=== PATIENT | female | born 1965 | race Caucasian/White ===

== ENCOUNTER → 2017-07-20 13:49 | Outpatient (CLI) | payer BC, SELFPAY ==
--- NOTE | 2017-07-20 13:57 | BI_ITS ---
MAMMOGRAPHY - BILATERAL DIAGNOSTIC REASON FOR EXAM: Female, 51 years old. Palpable abnormality upper outer quadrant of the left breast. PERTINENT HISTORY: Non-contributory. TECHNIQUE: Digital bilateral breast anant (3D mammographic acquisition) in the CC and MLO projections. 2-D mediolateral oblique (MLO) and craniocaudad (CC) views of both breasts were obtained. CAD: Full Field Digital Mammography with Computer Added Detection was performed. COMPARISON: No comparison mammograms available at this time. If any prior films become available, an addendum to this report can be generated. FINDINGS: Breast Composition: The breasts are heterogeneously dense, which may obscure small masses. There is evidence of a 2.7 cm x 1.4 cm spiculated mass in the upper lateral aspect of the left breast corresponding to the palpable abnormality. Calcifications are seen within it. Correlation with ultrasound is recommended. No other significant abnormalities are identified. BI/DIAG MAMM W/CAD, BILAT IMPRESSION: The palpable abnormality corresponds to 2.7 cm x 1.4 Adithya speculated mass in the upper outer quadrant of the left breast as described. Microcalcifications seen within it. A biopsy is recommended. Correlation with ultrasound is recommended as well. ASSESSMENT CATEGORY: BIRADS Category 4: Suspicious - Biopsy Should Be Considered. A letter regarding these results will be sent to the patient by the facility within 30 days. Approximately 10% of breast cancers are not detected by mammography. A normal mammogram should not delay biopsy of a clinically suspicious abnormality. Electronically Signed: Niels Jain MD at 15:36 EDT Tel [phone], Service support ,
--- NOTE | 2017-07-20 13:58 | US_ITS ---
STUDY: ULTRASOUND BREAST - LEFT REASON FOR EXAM: Female, 51 years old. One-month history of left breast lump. TECHNIQUE: Axial and longitudinal images of the LEFT breast were performed with a high resolution ultrasound transducer. COMPARISON: Comparison is made with prior mammogram done earlier today. FINDINGS: LEFT Breast: There is a 2.2 cm x 1.5 cm x 1.1 cm irregular hypoechoic mass with ill-defined borders. Calcifications are seen within it. This is seen at the 2:00 position breast at 6 and some in the a biopsy is recommended. US/Breast Limited Unilateral IMPRESSION: Suspicious abnormality at the 2:00 position of the breast at 6 cm from the nipple. A biopsy is recommended. ASSESSMENT CATEGORY: BIRADS Category 5: Highly Suggestive of Malignancy - Appropriate Action Should Be Taken. A letter regarding these results will be sent to the patient by the facility within 30 days. Electronically Signed: Niels Jain MD at 15:33 EDT Tel [phone], Service support ,
== END ==
PROVIDERS: Visit Provider Obstetrics & Gynecology
DX: N63.21 Unspecified lump in the left breast, upper outer quadrant (principal)
CPT/HCPCS: 76642; 77062; 77066; G0279

== ENCOUNTER → 2017-07-30 17:42 | Outpatient (CLI) | payer BC, SELFPAY ==
--- NOTE | 2017-07-30 | IMM_PTH ---
PATIENT: JUNIE KIM LOC: [facility] U#:[id number] AGE/SX: 59/F ROOM: RE07/30/[address]: Dr. Anurag Juárez MD : 1965 BED: DIS: SPEC #: [id number] RECD: 08/01/17 12:06 STATUS: CRUZ KAMILA #: [id number] REUBEN: 07/30/17 00:[address]: Anurag Juárez DEPT: IMMUNOHISTOCHEMISTRY RECD BY: Cris Flowers Tissues: Left breast, NOS Procedures: CALPONIN-1 (add) CK5-6 (add) CK8 (add) E-CAD (add) HER2 SAUL (add) KI-67 (add) P53 (add) HI (add) P40 (add) ER (initial) PHYSICIAN & INSTITUTION [place] [address] SPECIMEN INFORMATION: Tissue Source: Left breast core biopsy Clinical Info: Left breast abnormal ultrasound Specimen Number: [id number] CPT code: 58211, 10528 x6, 28427 x3 METHODOLOGY: Deparaffinized sections of prefer/formalin-fixed tissue or PAP/DQ stained slides are incubated with monoclonal/polyclonal antibodies/oligonucleotide probes. Localization is made via biotin free immunoperoxidase method. Appropriate controls are performed and reacted as expected. Results on target cell population are indicated in the following table: RESULTS: ANTIBODY / CLONE RESULT P53 (DO-7) negative Ki-67 (30-9) positive, low CK8 (68yxxeM19) positive CK5-6 (D5 & 1684) negative Calponin-1 (XQ143P) negative P40 (BC28) negative E-Cad (ECH-6) positive MORPHOMETRIC ANALYSIS ER (clone 6F11) >95%, strong HI (clone 16/1E2) 65%, moderate Her-2Neu (clone CB11) 0-1+ The prognostic test for HER2 is performed on formalin-fixed paraffin embedded tissue. A 3+ (positive) staining pattern is defined as intense, homogeneous, complete, circumferential membranous staining in >10% of contiguous tumor cells. A similar weak (2+) staining pattern is interpreted as equivocal. DELFINA follow-up testing is recommended for all equivocal cases. Positivity/negativity for ER/HI is reported if > or < 1% of the tumor cells are immuno- reactive, respectively. The ASCO/CAP criteria is used for scoring. Reference: Journal of Clinical Oncology, 2013; 31:9890-3626 & 2010; 16:6460-1924. Duration of fixation: 28.5 Hrs; Sample Adequate: Yes. These assays have not been validated on decalcified tissues. Results should be interpreted with caution given the likelihood of false negativity on decalcified specimens. These tests were developed and their performance characteristics determined by [facility]. They may not have been cleared or approved by the U.S. Food and Drug Administration. The FDA has determined that such clearance or approval is not necessary. 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 Positive for estrogen receptors (favorable prognostic indicator). Positive for progesterone receptors (favorable prognostic indicator). Negative for overexpression of DLS9iym. AM:marsha 08/02/17
--- NOTE | 2017-07-30 14:45 | BRBX_PTH ---
PATIENT: JUNIE KIM LOC: [facility] U#:[id number] AGE/SX: 59/F ROOM: RE07/30/[address]: Dr. Anurag Juárez MD : 1965 BED: DIS: SPEC #: [id number] RECD: 07/30/17 16:10 STATUS: HOPEJose KAMILA #: [id number] REUBEN: 07/30/17 14:[address]: Anurag Juárez DEPT: SURGICAL PATHOLOGY RECD BY: Isak Mcclain Tissues: Left breast, NOS Procedures: Surgery Specimen Level IV HEADER OPERATION: Left breast core biopsy PRE-OP DIAGNOSIS: Left breast abnormal ultrasound TISSUE SUBMITTED: Left breast tissue ISCHEMIC TIME: 1 minute FIXATION TIME: 28.5 hours MICROSCOPIC DIAGNOSIS Left breast, ultrasound-guided core biopsy: Invasive ductal carcinoma: Maximal length ? 10 mm Nuclear grade ? 3/3 Other findings ? 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 AM:marsha 08/01/17 COMMENT ER/MT/Qvz9ktv studies are being performed on sections of tumor and the results from this study will be reported separately ([id number]). MICROSCOPIC DESCRIPTION Slides are reviewed. GROSS DESCRIPTION Received in fixative is one container labeled with the patient's name and designated left breast. The specimen consists of two cores of light melton-white soft tissue. Each core has an average length of 1.2 cm and a maximal diameter of 0.1 cm. The specimen is totally submitted in one cassette. / AM:marsha 07/31/17 TC:0 CPT: 63988
== END ==
PROVIDERS: Visit Provider Surgery
DX: R92.8 Other abnormal and inconclusive findings on diagnostic imaging of breast (principal)
CPT/HCPCS: 88305; 88341; 88342

== ENCOUNTER → 2017-08-08 10:45 | Outpatient (CLI) | payer BC, SELFPAY ==
--- NOTE | 2017-08-08 10:59 | MRI_ITS ---
STUDY: BILATERAL BREAST MR WITHOUT AND WITH CONTRAST REASON FOR EXAM: Female, 51 years old. History of left breast cancer. Palpable lump in left breast with positive biopsy. TECHNIQUE: Multi-sequence multi-echo imaging of both breasts was performed with a dedicated breast coil. T1-weighted and T2-weighted images were performed before the administration of contrast. T1-weighted images were also performed after the administration of 10 mL of Gadavist contrast intravenously without complications. COMPARISON: Left breast ultrasound dated July 20, 2017 and bilateral mammogram dated July 20, 2017. FINDINGS: RIGHT BREAST: The breast tissue is scattered fibroglandular densities with minimal background enhancement. There are no abnormal enhancing masses or areas of non-mass enhancement in the right breast. LEFT BREAST: The breast tissue is scattered fibroglandular densities with minimal background enhancement. There is an irregular enhancing mass in the left breast at the 2:00 position corresponding to the ultrasonographic findings. The mass measures approximately 2.8 cm x 1.4 cm x 2.3 cm. There is a tissue clip marker within the central portion of the mass. There are no enlarged or abnormal lymph nodes. There is no abnormality in the visualized regions of the chest or liver. MRI/Breast w/o and/or W Cont Bilat IMPRESSION: 2.8 cm x 1.4 cm x 2.3 cm irregular enhancing mass at the 2:00 position of the left breast representing the index lesion. No other significant abnormality is identified. CATEGORY: BIRADS Category 6: Known Biopsy-Proven Malignancy - Appropriate Action Should Be Taken. A letter regarding these results will be sent to the patient by the facility within 30 days. Electronically Signed: Issa Hurst MD at 10:34 EDT , Service support ,
== END ==
PROVIDERS: Family Provider Family Medicine; PCP Family Medicine; Visit Provider Surgery
DX: C50.919 Malignant neoplasm of unspecified site of unspecified female breast (principal)
CPT/HCPCS: 77059; A9585; A4216; C8908

== ENCOUNTER 2017-08-15 08:56 | Day surgery (SDC) | payer BC, SELFPAY ==
--- NOTE | 2017-08-14 16:28 | RAD_ITS ---
STUDY: X-RAY CHEST REASON FOR EXAM: Female, 51 years old. Pre-op, breast cancer. TECHNIQUE: PA and lateral views of the chest. COMPARISON: None. FINDINGS: The lungs are clear and expanded. There is no demonstrated pleural abnormality. Normal size heart. Normal mediastinum and carli. Normal visualized pulmonary arteries. Normal visualized aortic arch and descending thoracic aorta. There is very minimal degenerative changes of the lumbar spine. There is degenerative osteoarthritis of the bilateral shoulders. There is no demonstrated abnormality of the visualized soft tissue structures of the upper abdomen. RAD/Chest PA and Lateral IMPRESSION: No acute cardiopulmonary disease. Electronically Signed: Lorenzo Torres DO at 16:44 EDT Tel [phone], Service support ,
[2017-08-14 16:45] LABS: Absolute Lymphocyte Count 2.68 X10^3/ul (0.83-4.51); Basophil# 0.02 X10^3/uL; Basophil% 0.2 % (0-1); Eosinophil# 0.28 X10^3/uL; Eosinophils% 2.8 % (0-5); Hemoglobin 9.6 g/dl (12.0-15.0); Lymphocyte # 2.68 X10^3/ul (4.0); Lymphocyte % 26.7 % (19-41); Mean Corpuscular Hgb 22.8 pg (27.0-32.0); Mean Corpuscular Volume 73.6 fL (81-99); Mean Platelet Vol. 10.2 fl (6.2-12.0); Monocyte# 1.04 X10^3/uL; Monocyte% 10.4 % (0-10); Neutrophil # 5.98 X10^3/uL (2.7-7.7); Neutrophil % 59.7 % (47-70); Platelet Count 354 K/mm3 (150-450); RBC Distribution Width CV 17.4 % (11.6-14.6); RBC Distribution Width SD 45.8 fl (35.1-43.9); Red Blood Count 4.21 M/mm3 (4.2-5.4)
[2017-08-14 16:49] LABS: POSITIVE COUNT NO; POSITIVE DIFFERENTIAL NO; POSITIVE MORPHOLOGY NO
[2017-08-14 17:20] LABS: Anion Gap 9 (5-15); BUN 18 mg/dL (7-18); BUN/Creat Ratio 21.8 RATIO (10-20); Chloride 103 mmol/L (98-107); Creatinine, Serum 0.83 mg/dL (0.55-1.02); EST Glomerular Filtration Rate 78 mL/min (>60); Est Glom Filt Rate - Afr Amer 94 mL/min (>60); Glucose 85 mg/dL (74-106); Sodium Level 138 mmol/L (136-145)
--- NOTE | 2017-08-15 | IMM_PTH ---
PATIENT: JUNIE KIM LOC: [facility] [place] U#:[id number] AGE/SX: 51/F ROOM: RE08/15/[address]: Dr. Anurag Juárez MD : 1965 BED: DIS: 08/15/2017 SPEC #: [id number] RECD: 08/20/17 12:28 STATUS: CRUZ KAMILA #: [id number] REUBEN: 08/15/17 00:[address]: Anurag Juárez DEPT: IMMUNOHISTOCHEMISTRY RECD BY: Cris Flowers ENTERED: 08/20/17 12:30 SP TYPE: IMMUNO OTHR DR: Dr. Ankit Abdullahi MD Tissues: A - Axillary lymph node, NOS Procedures: CK7 (add) Pankeratin (initial) Pankeratin (add) PHYSICIAN & INSTITUTION [place] [address] SPECIMEN INFORMATION: Tissue Source: A ? Left sentinel lymph node, biopsy Clinical Info: Malignant neoplasm of upper outer quadrant of left breast Specimen Number: [id number] A1, A2, A3, A7, A8 CPT code: 43502, 31008 x9 METHODOLOGY: Deparaffinized sections of prefer/formalin-fixed tissue or PAP/DQ stained slides are incubated with monoclonal/polyclonal antibodies/oligonucleotide probes. Localization is made via biotin free immunoperoxidase method. Appropriate controls are performed and reacted as expected. Results on target cell population are indicated in the following table: RESULTS: ANTIBODY / CLONE RESULT Block A1 AE1-3 (AE1/AE3/PCK26) negative CK7 (OV-TL12/30) negative Block A2 AE1-3 (AE1/AE3/PCK26) negative CK7 (OV-TL12/30) negative Block A3 AE1-3 (AE1/AE3/PCK26) negative CK7 (OV-TL12/30) negative Block A7 AE1-3 (AE1/AE3/PCK26) negative CK7 (OV-TL12/30) negative Block A8 AE1-3 (AE1/AE3/PCK26) negative CK7 (OV-TL12/30) negative These tests were developed and their performance characteristics determined by [facility]. They may not have been cleared or approved by the U.S. Food and Drug Administration. The FDA has determined that such clearance or approval is not necessary. INTERPRETATION: A. Left sentinel lymph node, biopsy: Three out of three lymph nodes, negative for metastatic carcinoma. SJ:marsha 08/21/17
--- NOTE | 2017-08-15 | AXNB_PTH ---
PATIENT: JUNIE KIM LOC: [facility] [place] U#:[id number] AGE/SX: 51/F ROOM: RE08/15/[address]: Dr. Anurag Juárez MD : 1965 BED: DIS: 08/15/2017 SPEC #: [id number] RECD: 08/15/17 11:52 STATUS: CRUZ KAMILA #: [id number] REUBEN: 08/15/17 00:[address]: Anurag Juárez DEPT: SURGICAL PATHOLOGY RECD BY: Cris Flowers ENTERED: 08/15/17 14:18 SP TYPE: AX NODE BX OTHR DR: Dr. Ankit Abdullahi MD Tissues: A - Axillary lymph node, NOS B - Left breast, NOS D - Endometrium, NOS Procedures: Frozen Section (charge) Frozen Section Add'l ([facility]) Surgery Specimen Level IV Surgery Specimen Level V Frozen (no charge) HEADER OPERATION: Breast lumpectomy, sentinel node PRE-OP DIAGNOSIS: Malignant neoplasm of upper outer quadrant of left breast TISSUE SUBMITTED: A ? Left sentinel lymph node tissue, B ? Left breast mass, short stitch superior, long stitch anterior, C ? Endometrial curettings ISCHEMIC TIME: 25 minutes FIXATION TIME: 31 hours FROZEN SECTION DIAGNOSIS A. Left sentinel lymph node, biopsy: Three out of three lymph nodes negative for metastatic carcinoma. SJ:marsha 08/15/17 MICROSCOPIC DIAGNOSIS A. Left sentinel lymph node, biopsy: Three out of three lymph nodes, negative for metastatic carcinoma. B. Left breast mass, lumpectomy with needle localization: Invasive ductal carcinoma. Ductal carcinoma in situ. See cancer summary below. C. Endometrial curettings: Secretory endometrium. Fragments of benign ecto- and endocervical mucosa. INVASIVE BREAST CANCER SUMMARY: Specimen ? partial breast Procedure ? excision with wire-guided localization Lymph node sampling ? sentinel lymph node Specimen integrity ? single intact specimen Specimen size ? 6.5 x 7 x 4 cm Specimen laterality - left Tumor site ? not specified Tumor size ? 2.2 x 2.2 x 1.8 cm Tumor focality ? single focus of invasive carcinoma. Macroscopic and Microscopic extent of tumor: Skin ? skin is not present Nipple ? not applicable Skeletal muscle ? no skeletal muscle present Ductal carcinoma in situ (DCIS) - present Extensive intraductal component (EIC) - positive Estimated size (extent) of DCIS - Ductal carcinoma in situ comprise about 30% of the total tumor volume. It is present adjacent and away from the invasive carcinoma. Number of blocks with DCIS - 6 Number of blocks examined - 12 Architectural patterns ? comedo, solid and cribriform Nuclear grade - 3 Necrosis ? present, central (expansive ?comedo? necrosis) Lobular carcinoma in situ (LCIS) ? not identified Histologic type of invasive carcinoma ? invasive ductal carcinoma (no special type) Histologic Grade ([place] grade): Glandular/tubular differentiation - score 3 Nuclear pleomorphism - score 3 Mitotic count ? score 1 Overall grade - 2 (score of 7) Margins ? margins uninvolved by invasive carcinoma and ductal carcinoma in situ.. The invasive carcinoma is 0.4 cm away from the inferior and lateral margin. The ductal carcinoma in situ is 0.1 cm away from the closest anterior margin and 0.4 cm away from the inferior and lateral margins. Treatment effect: Response to presurgical (neoadjuvant) therapy - no known presurgical therapy. Lymph-Vascular invasion ? not identified Dermal lymph-vascular invasion ? not applicable Lymph nodes: Number of sentinel lymph nodes examined - 3 Total number of lymph nodes examined (sentinel and nonsentinel) - 3 Number of lymph nodes with macrometastases, micrometastases and isolated tumor cells - 0 Method of evaluation of sentinel lymph nodes - H & E, multiple levels and IHC. Distance metastasis ? not applicable Additional pathologic findings ? fibrocystic changes Ancillary studies - previously performed on section of tumor ([id number] / [id number]). ER ? positive (>95%, strong) MO ? positive (65%, moderate) Her2 coby ? negative (0-1+) Microcalcifications ? present in ductal carcinoma in situ Clinical history - Please make reference to previous specimen ([id number]) left breast, ultrasound-guided core biopsy with diagnosis of invasive ductal carcinoma. PATHOLOGIC STAGE: pT2 pN0 Mx The above summary is in compliance with [employer] (CAP) Cancer Protocols Checklist and [place] [employer] Committee on Cancer (AJCC), Staging Manual, 8th Ed. SJ:rg 08/21/17 COMMENT A. The lymph nodes are negative for metastatic carcinoma on multiple H & E levels and immunohisto-chemical stains for cytokeratins ([id number]). Blocks 4, 5 and 6 shows pieces of breast tissue and adipose tissue. No lymph nodes are identified in these pieces. B. Invasive ductal carcinoma and ductal carcinoma in situ show marked lymphoplasmacytic infiltrate. MICROSCOPIC DESCRIPTION Slides are reviewed. GROSS DESCRIPTION A - Received fresh for frozen section diagnosis labeled with the patient's name is a specimen designated left sentinel lymph node tissue. The specimen consists of two pieces of yellow adipose tissue measuring in aggregate 6 x 6 x 2 cm. Three lymph nodes and two possible lymph nodes are identified. The lymph nodes and possible lymph nodes are submitted entirely for frozen section diagnosis. The largest lymph node measures 3.5 cm in greatest dimension. Spinner Cap Frame sections are submitted as follows: 1 ? frozen section, one lymph node, 2 & 3 ? frozen section, one serially sectioned lymph node, 4 & 5 ? frozen section, one possible lymph node, 6 ? frozen section, one possible lymph node, 7 & 8 ? frozen section, one lymph node serially sectioned. / SJ:rg 08/15/17 B - Received fresh for intraoperative consultation labeled with the patient's name is a specimen designated left breast mass. The specimen consists of a piece of melton-yellow fibroadipose tissue with needle localization measuring 6.5 x 7 x 4 cm. The specimen is oriented as short stitch - superior, long stitch ? anterior. The specimen is inked as follows: anterior ? yellow, posterior ? black, superior ? blue, inferior ? green, medial ? red and lateral ? orange. The wire is coming out laterally. Serial sections reveal a melton, solid, indurated mass measuring 2.2 x 2.2 x 1.8 cm. This mass is 0.5 cm from the closest inferior margin. This information is conveyed to the surgeon intraoperatively. The specimen is sectioned anterior to posteriorly. Sections of the rest of the specimen reveal melton-yellow adipose cut surfaces mixed with scant fibrous area. Spinner Cap Frame sections are submitted in 12 cassettes as follows: 1 - perpendicular anterior and posterior margins, 2 ? perpendicular superior and medial margins, 3 & 4 ? tumor with perpendicular inferior and lateral margins, 5-8 ? more sections of tumor, 9 - telephone services sales representative section adjacent to the tumor, 10-12 - telephone services sales representative sections away from the tumor. / SJ:marsha 08/16/17 C - Received in fixative is one container labeled with the patient's name and designated endometrial curettings. The specimen consists of multiple irregular fragments of light to dark melton soft tissue that in aggregate measure 7.5 x 5.5 x 0.2 cm. The specimen is totally submitted in three cassettes. / AM:marsha 08/16/17 TC:0 CPT: 73045 x2, 31482, 93391, 64999 x7, 30902 ADDENDUM ADDENDUM ADDENDUM ADDENDUM ADDENDUM ADDENDUM ADDENDUM ADDENDUM 09/19/2017 14:21 ADDENDUM 09/19/2017 14:21 ADDENDUM 09/19/2017 14:21 ADDENDUM 09/19/2017 14:21 ADDENDUM 09/19/2017 14:21 An order for Oncotype testing was received from Dr. Arias. This necessitated case review, block and slide selection by pathologist at [facility]. Breast Cancer Recurrence Score = 23 Results of the complete Oncotype testing ([employer] report) are viewable in EMR under: Reports - Pathology - Lab Pathology Report, Scanned.
[2017-08-15 09:14] LABS: Internal QC Validated? YES +Cl - CLEAR BKGD; Pregnancy, Urine Negative Negative
[2017-08-15 09:47] VITALS: BP 140/88; PULSE 77; RESP 14; TEMP 36.7; O2SAT 99; BMI 33.9
--- NOTE | 2017-08-15 10:55 | DCINST_ITS ---
Discharge Diet: No Restrictions Discharge Activity: May Not Drive - for 2-3 days or while taking narcotic pain meds. May shower in (days): 1 - Remove the bulky white tape dressing tomorrow and shower over the plastic dressing Lifting Restrictions: 10 pounds for 1 week. Call your doctor if your incision/area has: Continuous Slow Oozing, Sudden Increased Bleeding Call your doctor if you observe: Fever of 101 or Higher Suture Line Care: Avoid Pulling/Pushing, Avoid Pinching/Bending Remove Dressing in (days):: 1 - Remove bulky dressing tomorrow. May leave any opsite dressing for 3-4 days. Keep dressing in place until your follow-up appointment. Additional Dressing/Incision Instructions:: Remove bulky dressing tomorrow. May leave any opsite dressing for 3-4 days. You may remove the Steri-Strips then and an additional 1 week Allergies/Adverse Reactions: Allergies No Known Allergies Allergy (Verified 08/13/17 10:55) Medications to take at Discharge Hydrocodone Bitart/Apap 5-325 [[place] 5MG-325MG] 1 tablet PO Q6H PRN PRN 3 Days # 10 tablet 08/15/17 The following prescriptions were given: Hydrocodone Bitart/Apap 5-325 [[place] 5MG-325MG] 1 tablet PO Q6H PRN PRN 3 Days # 10 tablet PRN Reason: Pain Primary Care Physician: Ankit Abdullahi [Primary Care Provider] - Please Follow Up With: Anurag Juárez MD When: [phone] Appt in approximately one week please.
[2017-08-15] MEDS: Isosulfan Blue 1% 5 ML Vial (11:10)
--- NOTE | 2017-08-15 12:09 | BI_ITS ---
SURGICAL BREAST SPECIMEN RADIOGRAPH CLINICAL: Document presence of mass in biopsy specimen. FINDINGS: Specimen shows presence of mass. Electronically Signed: Niels Jain MD at 12:40 EDT Tel [phone], Service support , BI/Breast Biopsy Specimen
[2017-08-15] MEDS: Bupivacaine Mpf 0.5% 30 ML VIAL (12:25)
--- NOTE | 2017-08-15 12:28 | PCM.OPRPT ---
Problem List (1) Breast cancer in female Status: Acute Qualifiers: Breast location: upper outer quadrant of breast Estrogen receptor status: positive Laterality: left Qualified Code(s): C50.412 - Malignant neoplasm of upper-outer quadrant of left female breast; Z17.0 - Estrogen receptor positive status [ER+] Report of Operation Date of Procedure: 08/15/17 Pre-Operative Diagnosis: Invasive ductal carcinoma upper outer quadrant left breast Post-Operative Diagnosis: Same Surgery/Procedure Performed:: Left axillary blue dye sentinel lymph node biopsy with ultrasound-guided wire localization lumpectomy upper outer quadrant left breast Description of Surgical Findings:: Timeout and informed consent was obtained. Female was taken to the operating room. Was placed supine on the table. She underwent general endotracheal intubation anesthesia. Left arm was carefully wrapped with soft roll placed at right angles. The left breast was prepped with alcohol. 2 cc of isosulfan blue was injected retroareolar Jerry. Massage was performed. Then the left breast was sterilely prepped and draped. A transverse slightly oblique incision was made in the left axilla. Sharp and blunt dissection was used to identify the tracking of the blue dye. 2 separate lymph node packets were identified these were dissected free with hemostasis obtained with electrocautery. Hemoclips were utilized were indicated. The specimens were removed palpation failed to reveal any residual significant disease the specimens were sent for analysis. Then attention was drawn to the left breast. Ultrasound was used to wire localized the lesion with a Kopan's needle. The wire was left in place. A curvilinear incision was made in the upper outer quadrant of the left breast. Sharp dissection carried down through the substance tissue. Electrocautery was used to circumferentially completely dissected free them the mass. I felt that I got good circumferential edges. The wire exited laterally. A short suture was placed superiorly. A long suture anteriorly. Hemostasis was intact the wound was irrigated with water. The wounds were then closed with interrupted 3-0 Vicryl subdermal stitches and a running septic or 4-0 Monocryl. 20 cc of 0.5% Marcaine was used as a local anesthetic for both wounds. The axilla was then treated with Dermabond. The breast incision was treated with skin prep and proxy strips. Telfa OpSite dressings were applied. Bulky by Dr. Deras but dressings applied. Sponge instrument and needle counts were reported the surgeon be correct. Blood loss was minimal. No apparent complications. Specimens include the left axillary blue dye sentinel nodes and the left breast mass. Drains none. Blood loss minimal. Pathology reported 3 sentinel lymph nodes all negative. Pathology reported complete excision of the mass with 0.5 cm clear margin. Specimen mammogram also confirmed the previous marking clip and mass to be incorporated in the excised specimen. Subsequent to this procedure Dr. Nettie Beasley proceeded on with plans for gynecologic D&C and laparoscopic oophorectomy. Anurag Juárez M.D., F.A.C.S. Type of Anesthesia:: General
--- NOTE | 2017-08-15 13:43 | DCINST_ITS ---
Discharge Diet: No Restrictions Discharge Activity: May Not Drive - for 2-3 days or while taking narcotic pain meds. Return to work on:: 08/20/17 May shower in (days): 1 - Remove the bulky white tape dressing tomorrow and shower over the plastic dressing May resume sexual activity in: 1-2 weeks Call your doctor if your incision/area has: Continuous Slow Oozing, Sudden Increased Bleeding Call your doctor if you observe: Fever of 101 or Higher Suture Line Care: Avoid Pulling/Pushing, Avoid Pinching/Bending Remove Dressing in (days):: 1 - Remove bulky dressing tomorrow. May leave any opsite dressing for 3-4 days. Keep dressing in place until your follow-up appointment. Cleanse incision/area with: Soap & Water, - - your incisions have skin glue, they can get wet Additional Dressing/Incision Instructions:: Remove bulky dressing tomorrow. May leave any opsite dressing for 3-4 days. You may remove the Steri-Strips then and an additional 1 week Allergies/Adverse Reactions: Allergies No Known Allergies Allergy (Verified 08/13/17 10:55) Medications to take at Discharge Hydrocodone Bitart/Apap 5-325 [Jacumba 5MG-325MG] 1 tablet PO Q6H PRN PRN 3 Days # 10 tablet 08/15/17 The following prescriptions were given: Hydrocodone Bitart/Apap 5-325 [Jacumba 5MG-325MG] 1 tablet PO Q6H PRN PRN 3 Days # 10 tablet PRN Reason: Pain Primary Care Physician: Ankit Abdullahi [Primary Care Provider] - Please Follow Up With: Anurag Juárez MD When: [phone] Appt in approximately one week please. Please Follow Up With: Nettie Beasley MD - [phone] When: 1-2 weeks or as needed
[2017-08-15 13:50] VITALS: BP 140/88; BP 143/82; PULSE 97; RESP 16; TEMP 36.1; O2SAT 97
--- NOTE | 2017-08-15 13:52 | OP.PCM_ITS ---
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 No endometriomas but endometriosis of ovaries and posterior cul de sac. Normal cervix. 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 A weighted speculum was placed in the vagina and the anterior lip of the cervix was grasped with a tenaculum. The Molly uterine manipulator was placed and the remainder of the instruments were removed from the vagina. The uterus sounded to 12 cm. Attention was turned to the abdomen. All port sites were infiltrated with 0.5% Marcaine before skin incisions were made. A 5 mm intraumbilical incision was made. The anterior abdominal wall was tented up with 2 towel clamps while a 5 mm blade less trocar and sleeve were directly inserted. Intraperitoneal placement was confirmed with the laparoscope. The pneumoperitoneum was created and the underlying abdominal contents were intact. The patient was placed in Trendelenburg. Right and left lower quadrant ports were placed under direct visualization lateral to the inferior epigastric vessels. The bowel was swept away and the above findings were noted. The umbilical port was converted to a 10 mm port. The uterus was difficult to manipulate due to its bulk even with the manipulator. However, using the manipulator and 2 atraumatic graspers I was able to lift the uterus up enough to see that there were some adhesions of the peritoneum posterior cul-de-sac to the ovaries. There were some adhesions to the colon as well. There appeared to be endometriosis lesions that were brown and red on the ovaries as well as posterior cul-de-sac. Both ovaries were frozen to the pelvic sidewalls and posterior cul-de-sac. There are no discrete endometriomas. The left tube was able to be followed out to the fimbriated end but the right tube was adhered in conglomerate with the uterus to the pelvic sidewall. At this point decision was made that the patient should have an advanced laparoscopy was performed the dissection. I proceed with the surgery felt there was a high chance that would need to convert to a laparotomy and this would not necessarily be in the patient's best interest. The fascia of 10 mm umbilical incision was closed with 0 Vicryl suture. The lateral ports were removed under direct visualization and no active bleeding was noted. The pneumoperitoneum was released. The skin incisions were closed with Monocryl suture in a subcuticular fashion and skin glue. Turned to the vagina where the hysteroscope was placed into the cervix and normal-appearing lush endometrium was noted. The fibroid was not able to be readily visualized but I did have to manipulate the scope around the fibroid to enter the fundus. Both tubal ostia were identified. There were no discrete polyps or fibroids in the uterus. A gentle sharp curettage was done throughout the uterine cavity and the endometrial curettings handed off. The tenaculum was removed and the tenaculum site was hemostatic. The vaginal instruments were removed and the vaginal sweep was completed by me. The entire procedure is performed performed by me with assistance. All sponge and needle counts were correct and the patient was taken to the recovery room in stable condition. Grafts/Implants Used: none - Complications none - Admit VTE Documentation VTE Present on Admission: No VTE Mechan Device Prophylaxis: SCD's VTE Pharm Prophylaxis ordered?: No Reason prophylaxis not ordered:: Procedure Not Indicated
[2017-08-15 14:00] VITALS: BP 135/89; BP 140/88; PULSE 84; RESP 16; O2SAT 100
[2017-08-15 14:15] VITALS: BP 135/87; BP 140/88; PULSE 78; RESP 16; O2SAT 100
[2017-08-15 14:23] VITALS: BP 102/88; BP 140/88; PULSE 77; RESP 16; TEMP 36.5; O2SAT 100
[2017-08-15] MEDS: HYDROcodone Bitartrate/Apap 5/325 Tablet PO (15:35)
[2017-08-15 16:19] VITALS: BP 140/88
== END 2017-08-15 16:20 | disposition home or self-care (01) ==
LOC: SDC 08:56 → AC 08:57
PROVIDERS: Obstetrics & Gynecology; Family Provider Family Medicine; PCP Family Medicine; Visit Provider Surgery
PROC: (CPT 19301; principal; 2017-08-15 10:45)
PROC: (CPT 49320; 2017-08-15 10:45)
PROC: 0UDB8ZZ Extraction of Endometrium, Via Natural or Artificial Opening Endoscopic (ICD-10-PCS; CPT 58558; 2017-08-15 10:45)
DX: C50.412 Malignant neoplasm of upper-outer quadrant of left female breast (principal); Z17.0 Estrogen receptor positive status [ER+]; N80.1 Endometriosis of ovary; N73.6 Female pelvic peritoneal adhesions (postinfective); D25.1 Intramural leiomyoma of uterus; N92.0 Excessive and frequent menstruation with regular cycle; N93.9 Abnormal uterine and vaginal bleeding, unspecified
CPT/HCPCS: 19302; 38900; 49320; 58558; 36415; 71046; 76098; 80048; 81025; 85025; 88305; 88307; 88331; 88332; 88341; 88342; J7120; Q9968

== ENCOUNTER → 2017-09-17 14:35 | Outpatient (CLI) | payer BC, SELFPAY ==
--- NOTE | 2017-09-17 14:35 | DT_ITS ---
This patient was seen during an EMR downtime September 10, 2017 - September 17, 2017. This patient may have a combination of paper and electronic documentation or all paper documentation. All documentation is viewable within the e-chart portion of [facility] for each patient visit.
== END ==
PROVIDERS: Visit Provider Physician Assistant
DX: N61.0 Mastitis without abscess (principal)
CPT/HCPCS: 87070; 87205

== ENCOUNTER → 2018-07-12 09:02 | Outpatient (CLI) | payer BC, SELFPAY ==
--- NOTE | 2018-07-12 09:06 | BI_ITS ---
MAMMOGRAPHY - BILATERAL SCREENING REASON FOR EXAM: Female, 52 years old. Routine annual screening examination. PERTINENT HISTORY: Personal history of breast cancer. Prior left lumpectomy with radiation therapy. Tenderness at the lumpectomy site TECHNIQUE: Digital bilateral breast anant (3D mammographic acquisition) in the CC and MLO projections. 2-D mediolateral oblique (MLO) and craniocaudad (CC) views of both breasts were obtained. CAD: Full Field Digital Mammography with Computer Added Detection was performed. COMPARISON: Comparison is made with prior study dated July 20, 2017. FINDINGS: Breast Composition: The breasts are heterogeneously dense, which may obscure small masses. Since prior study, the patient underwent a lumpectomy in the upper lateral aspect of the right breast as well surgical exploration of the left axilla. Postsurgical scarring is seen at the operative site. No other significant abnormalities are identified. BI/SCREENING MAMM (CAD), BILAT IMPRESSION: Status post lumpectomy and radiation in the upper lateral aspect of the left breast with the postoperative scarring. ASSESSMENT CATEGORY: BIRADS Category 2: Benign. A letter regarding these results will be sent to the patient by the facility within 30 days. Approximately 10% of breast cancers are not detected by mammography. A normal mammogram should not delay biopsy of a clinically suspicious abnormality. [id number] Electronically Signed: Niels Jain, at 10:50 EDT , Service support ,
== END ==
PROVIDERS: Family Provider Family Medicine; PCP Family Medicine; Visit Provider Internal Medicine Hematology & Oncology
DX: C50.412 Malignant neoplasm of upper-outer quadrant of left female breast (principal); Z17.0 Estrogen receptor positive status [ER+]; Z12.31 Encounter for screening mammogram for malignant neoplasm of breast
CPT/HCPCS: 77063; 77067

== ENCOUNTER → 2019-08-07 15:30 | Outpatient (CLI) | payer BC, SELFPAY ==
--- NOTE | 2019-08-07 14:05 | BI_ITS ---
MAMMOGRAPHY - BILATERAL SCREENING REASON FOR EXAM: Female, 53 years old. Routine annual screening examination. PERTINENT HISTORY: Personal history of breast cancer. Prior left lumpectomy with radiation treatment. TECHNIQUE: Digital bilateral breast elidia (3D mammographic acquisition) in the CC and MLO projections. 2-D mediolateral oblique (MLO) and craniocaudad (CC) views of both breasts were obtained. CAD: Full Field Digital Mammography with Computer Added Detection was performed. COMPARISON: Comparison is made with prior examination dated July 12, 2018 and July 20, 2017. FINDINGS: Breast Composition: The breasts are heterogeneously dense, which may obscure small masses. There are no dominant masses or suspicious calcifications. Stable focal architectural distortion in the deep upper lateral aspect of the left breast at the biopsy site. This is unchanged. A surgical clip is also seen in the left axillary region. No other significant abnormalities are identified. There has been no significant change since the prior study. BI/SCREEN MAMM (CAD) W/ELIDIA BILAT IMPRESSION: Stable bilateral screening mammogram. Yearly follow-up mammogram recommended. (A) ASSESSMENT CATEGORY: BIRADS Category 2: Benign. A letter regarding these results will be sent to the patient by the facility within 30 days. Approximately 10% of breast cancers are not detected by mammography. A normal mammogram should not delay biopsy of a clinically suspicious abnormality. [id number] Electronically Signed: Niels Jain, at 15:36 EDT , Service support ,
== END ==
PROVIDERS: Family Provider Family Medicine; PCP Family Medicine; Referring Provider Nurse Practitioner; Visit Provider Nurse Practitioner
DX: Z12.31 Encounter for screening mammogram for malignant neoplasm of breast (principal); C50.412 Malignant neoplasm of upper-outer quadrant of left female breast; Z17.0 Estrogen receptor positive status [ER+]
CPT/HCPCS: 77063; 77067

== ENCOUNTER 2019-09-04 05:54 | Day surgery (SDC) | payer BC, SELFPAY ==
--- NOTE | 2019-08-26 17:56 | HP.PCM_ITS ---
History and Physical Date of Admission: 09/04/19 HPI: The patient is a 53 year old female presenting for pre-operative visit. She is scheduled for?hysteroscopy dilation and curettage, for?AUB and atypical endometrial cells. ??Procedure discussed along with risks, benefits and complications. ?Other alternatives discussed for management. Consent form signed??Yes.? PAST MEDICAL HISTORY PAST MEDICAL HISTORY Diagnosis Date ? Breast cancer (HCC) 07/2017 ? Endometriosis, ovary 08/15/2017 ? Fibroid uterus 07/2017 ? large boggy uterus, fibroid ? ? PAST SURGICAL HISTORY PAST SURGICAL HISTORY Procedure Laterality Date ? D&C ? 08/15/2017 ? D&C for AUB, large boggy uterus ? LAPAROSCOPY DIAGNOSTIC ? 08/15/2017 ? planned BSO but adhesions/endometriosis so abandoned procedure ? LEEP PROCEDURE (ASSISTANT PROFESSOR OF HISTORY DEPT)_*FL ? approx 2009 ? PAST SURGICAL HISTORY OF Left 08/15/2017 ? lumpectomy and LN biopsy ? REVISE MEDIAN N/CARPAL TUNNEL SURG Bilateral 2001 ? ? CURRENT MEDICATIONS Current Outpatient Medications Medication Sig Dispense Refill ? ergocalciferol 50,000 unit capsule (VITAMIN D2, DRISDOL) Take 1 capsule by mouth one time a week. 52 capsule 0 ? Leuprolide Acetate, 3 Month, (LUPRON DEPOT, 3 MONTH,) 11.25 mg injection Inject intramuscularly every 3 months. ? ? ? multivit with calcium,iron,min (MULTIPLE VITAMIN, WOMENS ORAL) Take 1 tablet by mouth once daily. ? ? ? calcium carbonate 600 mg-cholecalciferol 400 units (CALCIUM WITH VITAMIN D) 600 mg(1,500mg) -400 unit tab Take 1 tablet by mouth once daily. ? ? ? ascorbic acid, vitamin C, (VITAMIN C) 250 mg tablet Take 250 mg by mouth once daily. ? ibuprofen (MOTRIN) 200 mg tablet Take 600 mg by mouth every 8 hours as needed. ? [START ON 08/30/2019] norethindrone (AYGESTIN) 5 mg tablet Take 1 tablet by mouth once daily for 5 days. 5 tablet 0 ? tamoxifen (NOLVADEX) 20 mg tablet Take 1 tablet (20 mg) by mouth once daily. (Patient not taking: Reported on 08/18/2019 ? ) 30 tablet 1 ? No current facility-administered medications for this visit.? ? ALLERGIES:?Patient has no known allergies. ? PERSONAL HISTORY:? SOCIAL HISTORY Social History ? Tobacco Use ? Smoking status: Never Smoker ? Smokeless tobacco: Never Used Substance Use Topics ? Alcohol use: Yes ? ? Comment: social ? Drug use: No ? FAMILY HISTORY:? FAMILY HISTORY FAMILY HISTORY Problem Relation Age of Onset ? Heart Mother 85 ?Afib ? Heart Father ? ? Cancer Father 74 ?Prostate cancer ? Heart Sister ?Afib ? other (back issues) Brother ? ? Depression Sister ? ? other (back issues) Brother ? ? No Known Problems Brother ? ? No Known Problems Brother ? ? No Known Problems Brother ? ? Heart Maternal Grandmother ?CHF ? Heart Maternal Grandfather ?NE ? No Known Problems Paternal Grandfather ? ? REVIEW OF SYMPTOMS: ? ? PHYSICAL EXAMINATION: ? VITALS:?Blood pressure 134/86, pulse 68, resp. rate 16, height 5' 3 (1.6 m), weight 201 lb (91.2 kg), last menstrual period 08/04/2019. ? GENERAL:??The patient is well nourished, well hydrated in no acute distress. ?, The patient is oriented to time, place, and person. NECK:?Supple. No lynphadenopathy, normal thyroid, no thyromegaly. LUNGS:?Clear to auscultation bilaterally. no wheezes, rhonchi or rales HEART:?Regular rate and rhythm, Normal heart sounds and No murmurs or gallops ? ? IMPRESSION:?atypical endometrial cells, abnormal uterine bleeding, breast cancer ? PLAN:???Progestin to prevent bleeding until surgery next week.??The risks/benefits/alternatives and personal involved for the planned?hysterscopy D&C with possible polyp resection?were reviewed with the patient. Her questions were answered to her satisfaction and she desires to proceed. ?Consent was signed. ?I reviewed with her postop instructions and expectations. ? ? I have reviewed and updated past medical and surgical history, medications and allergies. This H&P was completed in my office on 08/26/2019.
[2019-09-04] VITALS (7 sets, daily range): BP systolic 112–130; BP diastolic 74–93; PULSE 65–70; RESP 16–18; TEMP 36.1–36.4; O2SAT 97–100; BMI 35.6
--- NOTE | 2019-09-04 | EMB_PTH ---
PATIENT: JUNIE KIM LOC: [facility] U#:[id number] AGE/SX: 53/F ROOM: RE09/04/[address]: Dr. Nettie Beasley MD : 1965 BED: DIS: 09/04/2019 SPEC #: [id number] RECD: 09/04/19 10:49 STATUS: CRUZ TREVIÑO #: [id number] REUBEN: 09/04/19 00:[address]: Nettie Beasley DEPT: SURGICAL PATHOLOGY RECD BY: Piero Humphreys Tissues: Endometrium, NOS Procedures: Surgery Specimen Level IV HEADER OPERATION: Hysteroscopy, D & C Symphion PRE-OP DIAGNOSIS: Abnormal uterine bleeding, atypical endometrial cells TISSUE SUBMITTED: Endometrial curettings and resection of fibroid MICROSCOPIC DIAGNOSIS Endometrial curettings and resection of fibroid: Interval endometrium to mildly disordered proliferative endometrium. Fragments of myometrium, consistent with fragments of leiomyoma. SJ:marsha 09/05/19 COMMENT Case has been reviewed in consultation with Dr. Gaming who concurs with the above diagnosis. IDC:AM MICROSCOPIC DESCRIPTION Slides are reviewed. GROSS DESCRIPTION Received in fixative is one container labeled with the patient's name and designated endometrial curettings and resection of fibroid. The specimen consists of multiple irregular fragments of melton-pink soft tissue that in aggregate measure 5 x 3 x 0.3 cm. The entire specimen is submitted in two cassettes. / SJ:rg 09/04/19 TC:1 CPT: 37134
[2019-09-04 06:27] LABS: Hematocrit 39.7 % (37-47); Hemoglobin 12.4 g/dL (12.0-15.0); Mean Corp Hgb Conc 31.2 g/dL (32-36); Mean Corpuscular Hgb 28.1 pg (27.0-32.0); Mean Corpuscular Volume 89.8 fL (81-99); Mean Platelet Vol. 9.7 fl (6.2-12.0); Platelet Count 279 K/mm3 (150-450); RBC Distribution Width CV 13.8 % (11.6-14.6); RBC Distribution Width SD 45.2 fl (35.1-43.9); Red Blood Count 4.42 M/mm3 (4.2-5.4); White Blood Count 8.8 K/mm3 (4.4-11.0)
[2019-09-04] MEDS: Acetaminophen 500 MG Tablet 1000 MG PO (06:32)
[2019-09-04] MEDS: Lactated Ringers 1,000 ML 70 ML IV (06:41)
[2019-09-04] MEDS: Ketorolac 30 MG/ML Syringe IV (06:42)
--- NOTE | 2019-09-04 08:06 | DCINST_ITS ---
Discharge Diet: No Restrictions Discharge Activity: Return to Normal Activity, May Shower, May Take a Tub Bath - in 2 weeks. Return to work on:: 09/06/19 May shower in (days): 1 May resume sexual activity in: 2 weeks Call your doctor if your incision/area has: Sudden Increased Bleeding, Increased Pain/ Swelling, Foul Smelling Discharge Call your doctor if you observe: Fever of 101 or Higher, Using more than one pad per hour - for 2 hrs in a row Allergies/Adverse Reactions: Allergies No Known Allergies Allergy (Verified 09/04/19 06:23) Medications to take at Discharge Ascorbic Acid/Multivit-Min [Emergen-C 1,000 mg Packet] 1,000 mg PO DAILY 08/28/19 Calcium Carb/Vitamin D3/Vit K1 [Calcium + D Soft Chewable Tab] 1 ea PO DAILY 08/28/19 Ergocalciferol [Vitamin D] 50,000 unit PO FR 08/28/19 Leuprolide acetate [Lupron Depot] 3.75 mg IM QMONTH 08/28/19 Multivitamin with Minerals [Multiple Vitamin] 1 ea PO DAILY 08/28/19 Primary Care Physician: JOSE HEIN [Other] Test Results: Test results from this visit will be discussed in further detail at your follow- up appointment, if applicable. Please Follow Up With: Nettie Beasley MD - [phone] When: in 2-3 months or as needed, we will call you with your pathology results
--- NOTE | 2019-09-04 08:07 | OP.PCM_ITS ---
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 The weighted speculum was placed in the vagina and the anterior lip of the cervix was grasped with a single-tooth tenaculum. A paracervical block was administered with [1% lidocaine with 1-100,000 epinephrine solution]. The cervix was dilated serially with Hegar dilators. The Symphion hysteroscope was placed into the uterine cavity and the above findings were noted. Bilateral tubal ostia [were] identified. The Symphion resection device was inserted and a visual D&C was done of the endometrial cavity. The uterine fibroid was resected. The pressure on the resection device was turned down to allow the fibroid to protrude into the endometrial cavity. Care was taken to resect as much of the uterine fibroid as possible. No other intrauterine pathology was noted. The instruments were removed from the vagina. The specimen was handed off and sent to pathology. All sponge and needle counts were correct. Vaginal sweep was performed by me. The patient was awakened and taken to the recovery room in stable condition. Hysteroscopic fluid deficit was calculated to be 725 cc of normal saline Grafts/Implants Used: none - Complications none - Admit VTE Documentation VTE Present on Admission: No VTE Mechan Device Prophylaxis: SCD's VTE Pharm Prophylaxis ordered?: No Reason prophylaxis not ordered:: Procedure Not Indicated
== END 2019-09-04 09:03 | disposition home or self-care (01) ==
LOC: SDC 05:56 → AC 05:56
PROVIDERS: Referring Provider Obstetrics & Gynecology; Visit Provider Obstetrics & Gynecology
PROC: 0UB98ZZ Excision of Uterus, Via Natural or Artificial Opening Endoscopic (ICD-10-PCS; CPT 58558; principal; 2019-09-04 07:15)
DX: D25.0 Submucous leiomyoma of uterus (principal); Z85.3 Personal history of malignant neoplasm of breast; Z11.59 Encounter for screening for other viral diseases
CPT/HCPCS: 58561; 36415; 85027; 87635; 88305; G2023; J7120; U0004

== ENCOUNTER → 2020-08-31 07:52 | Outpatient (CLI) | payer BC, SELFPAY ==
[2019-09-04 06:26] VITALS: BMI 35.6
--- NOTE | 2020-08-31 07:55 | BI_ITS ---
MAMMOGRAPHY - BILATERAL SCREENING REASON FOR EXAM: Female, 54 years old. Routine annual screening examination. PERTINENT HISTORY: Personal history of breast cancer. Prior left lumpectomy with radiation treatment. Tenderness at the lumpectomy site. TECHNIQUE: Digital bilateral breast elidia (3D mammographic acquisition) in the CC and MLO projections. 2-D mediolateral oblique (MLO) and craniocaudad (CC) views of both breasts were obtained. CAD: Full Field Digital Mammography with Computer Added Detection was performed. COMPARISON: Comparison is made with prior study dated 08/07/2019 and 07/12/2018 FINDINGS: Breast Composition: The breasts are heterogeneously dense, which may obscure small masses. There are no dominant masses or suspicious calcifications. Stable focal area of architectural distortion in the deep upper lateral aspect of the left breast corresponding to the lumpectomy site. This is unchanged. A surgical clip is also seen in the left axillary region. No other significant abnormalities are identified. There has been no significant change since the prior study. BI/SCRN MAMM (CAD)W/ELIDIA BILAT IMPRESSION: Stable bilateral screening mammogram. Yearly follow-up mammogram recommended. (A) ASSESSMENT CATEGORY: BIRADS Category 2: Benign. A letter regarding these results will be sent to the patient by the facility within 30 days. Approximately 10% of breast cancers are not detected by mammography. A normal mammogram should not delay biopsy of a clinically suspicious abnormality. [id number] Electronically Signed: Niels Jain MD at 8:56 EDT , Service support ,
== END ==
PROVIDERS: Referring Provider Internal Medicine Hematology & Oncology; Visit Provider Internal Medicine Hematology & Oncology
DX: Z12.31 Encounter for screening mammogram for malignant neoplasm of breast (principal)
CPT/HCPCS: 77063; 77067

== ENCOUNTER → 2021-09-12 | Outpatient (CLI) | payer BC, SELFPAY ==
--- NOTE | 2021-09-12 08:19 | BI_ITS ---
MAMMOGRAPHY - BILATERAL SCREENING REASON FOR EXAM: Female, 55 years old. Routine annual screening examination. PERTINENT HISTORY: Personal history of breast cancer. Prior left lumpectomy and radiation treatment. TECHNIQUE: Digital bilateral breast elidia (3D mammographic acquisition) in the CC and MLO projections. 2-D mediolateral oblique (MLO) and craniocaudad (CC) views of both breasts were obtained. CAD: Full Field Digital Mammography with Computer Added Detection was performed. COMPARISON: Comparison is made with prior study dated 08/31/2020 and 08/07/2019. FINDINGS: Breast Composition: The breasts are heterogeneously dense, which may obscure small masses. 1 scan, the patient is status post lumpectomy in the upper deep lateral aspect of the left breast with resultant architectural distortion and postoperative scarring. A surgical clip is also seen in the left axillary region. No other significant abnormalities are identified. There has been no significant change since the prior study. BI/SCRN MAMM (CAD)W/ELIDIA BILAT IMPRESSION: Stable bilateral screening mammogram. Yearly follow-up mammogram recommended. (A) ASSESSMENT CATEGORY: BIRADS Category 2: Benign. A letter regarding these results will be sent to the patient by the facility within 30 days. Approximately 10% of breast cancers are not detected by mammography. A normal mammogram should not delay biopsy of a clinically suspicious abnormality. [id number] Electronically Signed: Niels Jain MD at 9:45 EDT ,
== END | disposition home or self-care (01) ==
LOC: OPBI 08:14
PROVIDERS: Referring Provider Internal Medicine Hematology & Oncology; Visit Provider Internal Medicine Hematology & Oncology
DX: Z12.31 Encounter for screening mammogram for malignant neoplasm of breast (principal)
CPT/HCPCS: 77063; 77067

== ENCOUNTER → 2022-10-03 | Outpatient (CLI) | payer BC, SELFPAY ==
--- NOTE | 2022-10-03 06:57 | BI_ITS ---
MAMMOGRAPHY - BILATERAL SCREENING REASON FOR EXAM: Female, 57 years old. Routine annual screening examination. PERTINENT HISTORY: Personal history of breast cancer. History of prior left lumpectomy and radiation treatment. TECHNIQUE: Digital bilateral breast elidia (3D mammographic acquisition) in the CC and MLO projections. 2-D mediolateral oblique (MLO) and craniocaudad (CC) views of both breasts were obtained. CAD: Full Field Digital Mammography with Computer Added Detection was performed. COMPARISON: Comparison is made with prior study dated September 12, 2021 and August 31, 2020. FINDINGS: Breast Composition: The breasts are heterogeneously dense, which may obscure small masses. There are no dominant masses or suspicious calcifications. Once again, the patient is status post lumpectomy in the deep upper lateral aspect of the left breast with resultant architectural distortion and postoperative scarring. Surgical clips are seen in the left axillary region. No other significant abnormalities are identified. There has been no significant change since the prior study. BI/SCRN MAMM (CAD)W/ELIDIA BILAT IMPRESSION: Stable bilateral screening mammogram. Yearly follow-up mammogram recommended. (A) ASSESSMENT CATEGORY: BIRADS Category 2: Benign. A letter regarding these results will be sent to the patient by the facility within 30 days. Approximately 10% of breast cancers are not detected by mammography. A normal mammogram should not delay biopsy of a clinically suspicious abnormality. [id number] Electronically Signed: Niels Jain MD at 9:51 EDT ,
== END | disposition home or self-care (01) ==
LOC: OPBI 06:54
PROVIDERS: Referring Provider Internal Medicine Hematology & Oncology; Visit Provider Internal Medicine Hematology & Oncology
DX: Z12.31 Encounter for screening mammogram for malignant neoplasm of breast (principal)
CPT/HCPCS: 77063; 77067

== ENCOUNTER → 2023-06-13 | Outpatient (CLI) | payer OTHER, SELFPAY ==
--- NOTE | 2023-06-13 14:21 | NEURO ---
NCS and/or EMG Patient Report Ordering Doctor: Yanet Novoa DATE OF SERVICE: 06/13/23 Radha is for electrodiagnostic testing of the right upper limb. She has numbness and tingling in the right hand. She has a history of carpal tunnel release approximately 20 years ago. Electrodiagnostic findings: Right median motor nerve demonstrates normal distal latency, amplitude and conduction velocity. Normal right ulnar motor response, including conduction across the elbow. Normal median ulnar F?wave. Borderline prolonged right median sensory latency at the wrist. Normal right median palmar response. Normal ulnar and radial sensory responses. Needle EMG testing was performed in the right upper limb. All muscles tested showed no evidence of denervation with normal motor unit action potentials. Electrodiagnostic assessment: This is a normal electrodiagnostic study in the right upper limb. There is no electrodiagnostic evidence for peripheral neuropathy, including carpal tunnel or cubital tunnel syndrome. There is no electrodiagnostic evidence for cervical radiculopathy. Multi Select Codes Neurology Neurology Interp Codes: 01579-19 Musc test done w/n test comp (interp) and 70101-58 Nrv cndj test 7-8 studies (interp)
== END | disposition home or self-care (01) ==
LOC: PSN 09:53
PROVIDERS: Referring Provider Physician Assistant Surgical; Visit Provider Physician Assistant Surgical
DX: R20.2 Paresthesia of skin (principal)
CPT/HCPCS: 95886; 95910

== ENCOUNTER 2024-02-28 11:42 | Day surgery (SDC) | payer OTHER, SELFPAY ==
[2024-02-28] VITALS (8 sets, daily range): BP systolic 116–133; BP diastolic 65–77; PULSE 60–80; RESP 16; TEMP 36.7–37.1; O2SAT 93–97; BMI 33.0
[2024-02-28] MEDS: Ketorolac 30 MG/ML Syringe IV (12:35)
[2024-02-28] MEDS: Acetaminophen 500 MG Tablet 1000 MG PO (12:36)
[2024-02-28 12:46] LABS: Hematocrit 40.2 % (37-47); Hemoglobin 13.3 g/dL (12.0-15.0); Mean Corp Hgb Conc 33.1 g/dL (32-36); Mean Corpuscular Hgb 28.6 pg (27.0-32.0); Mean Corpuscular Volume 86.5 fL (81-99); Mean Platelet Vol. 9.9 fl (6.2-12.0); Platelet Count 256 K/mm3 (150-450); RBC Distribution Width CV 13.9 % (11.6-14.6); RBC Distribution Width SD 44.3 fl (35.1-43.9); Red Blood Count 4.65 M/mm3 (4.2-5.4); White Blood Count 7.7 K/mm3 (4.4-11.0)
[2024-02-28 12:58] LABS: Anion Gap 3 (5-15); BUN 16 mg/dL (7-18); BUN/Creat Ratio 21.6 RATIO (10-20); Calcium,Total 9.2 mg/dL (8.5-10.1); Chloride 108 mmol/L (98-107); Creatinine, Serum 0.74 mg/dL (0.55-1.02); EST Glomerular Filtration Rate 86 mL/min (>60); Est Glom Filt Rate - Afr Amer 104 mL/min (>60); Estimated Creatinine Clearance 87.48 ml/min; Glucose 86 mg/dL (74-106); Potassium 3.9 mmol/L (3.5-5.1); Sodium Level 139 mmol/L (136-145)
--- NOTE | 2024-02-28 13:01 | PCM.PRE.AN2 ---
ASA Classification* ASA Classification ASA Classification: 2 Assessment & Plan Anesthesia* Anesthesia Assessment Anesthesia Assessment: Discussed sedation and/or anesthesia options, risks, benefits, and alternatives with patient/parents/legal guardian/POA. Questions invited. The patient/parents/legal guardian/POA seems to understand and agrees to proceed with anesthesia plan. Reviewed the physical assessment, medical history, allergy history and patient home medications list prior to surgery/procedure/anesthetic and documented any changes. Performed airway and anesthesia risk assessments. Anesthesia Type Anesthesia Type: MAC History Source History Obtained from:: Patient and Chart Anesthesia Focused Assessment* Temperature: 98.1 F Pulse Rate: 60 Blood Pressure: 133/77 Respiratory Rate: 16 Pulse Ox: 97 Oxygen Delivery Method: Room Air Airway Assessment Mouth opens: >3 cm Mallampati Score: III Teeth Condition: Partial (Patient has right lower implant. It is tight.) Neck Range of motion (ROM): Full ROM Focused Labs Anesthesia Preop lab: CBC WBC 7.7 K/mm3 (4.4-11.0) 02/28/24 12:30 RBC 4.65 M/mm3 (4.2-5.4) 02/28/24 12:30 Hgb 13.3 g/dL (12.0-15.0) 02/28/24 12:30 Hct 40.2 % (37-47) 02/28/24 12:30 Plt Count 256 K/mm3 (150-450) 02/28/24 12:30 CHEMISTRY Potassium 3.9 mmol/L (3.5-5.1) 02/28/24 12:30 Sodium 139 mmol/L (136-145) 02/28/24 12:30 BUN 16 mg/dL (7-18) 02/28/24 12:30 Creatinine 0.74 mg/dL (0.55-1.02) 02/28/24 12:30 Glucose 86 mg/dL (74-106) 02/28/24 12:30 COAG Urine Test Negative Negative 08/15/17 09:06 Pre-Assessment Diagnosis/Proposed Procedure Planned Operative Procedure(s): HYSTEROSCOPY D&C POSS POLYP REMOVAL Anesthesia History Anesthesia History - lead systems developer: Anesthesia History - lead systems developer Hx Hospitalization No 02/27/24 11:19 Any Problems With Anesthesia No 02/27/24 11:19 Cholinesterase deficiency No 02/27/24 11:19 You/Your Family Experience No 02/27/24 11:19 fever (hyperthermia) with Relationship Recent Exposure to Contagious No 02/28/24 12:18 Disease Does patient have nerve No 02/27/24 11:19 stimulator Patient instructed to have device shut off --Does patient have Pacemaker No 02/28/24 12:18 or ICD? When Was Last Pacemaker Check QUESTION #4 FULL TEXT: You/Your Family Experience fever (hyperthermia) with Anesthesia Last Oral Intake Last Oral intake: Last Oral Intake NPO since 19:00 02/28/24 12:18 Meds taken in AM with sips of No 02/28/24 12:18 water? Meds patient instructed to take am of surgery Any additional information?: Yes NPO since: 07:30 (Patient had black coffee at 7:30 AM.) PONV PONV - lead systems developer: PONV - lead systems developer Female Yes 02/27/24 11:19 HX of Motion Sickness No 02/27/24 11:19 HX of N/V After Surgery No 02/27/24 11:19 Non-Smoker Yes 02/27/24 11:19 Duration of Surgery greater No 02/27/24 11:19 than 60 minutes Number of Risk Factors 2 02/27/24 11:19 PONV Score Moderate Risk 02/27/24 11:19 Height & Weight Height & Weight: Anesthesia: Height & Weight Height 5 ft 3 in 02/28/24 12:18 Weight: 84.6 kg 02/28/24 12:18 Body Mass Index (BMI) 33.0 02/28/24 12:18 Respiratory Assessment Respiratory Assessment - lead systems developer: Respiratory Tract Infection Hx - lead systems developer Hx Respiratory Tract Infection No 02/27/24 11:19 STOP Sleep Apnea STOP Sleep Apnea - lead systems developer: STOP Sleep Apnea - lead systems developer Hx Hypertension No 02/27/24 11:19 Hx Sleep Apnea No 02/27/24 11:19 CPAP BIPAP Do you snore loudly (louder Yes 02/27/24 11:19 than talking or can be heard Do you often feel tired/ No 02/27/24 11:19 fatigued/ sleepy during daytime? Has anyone observed you stop No 02/27/24 11:19 breathing during sleep? STOP Results Negative 02/27/24 11:19 QUESTION #5 FULL TEXT : Do you snore loudly (louder than talking or can be heard through closed doors)? Tobacco Use History Tobacco Use History - lead systems developer: Tobacco Use History - lead systems developer Tobacco Use Smoking Status Never smoker 02/27/24 11:19 Hx Tobacco Use No 02/27/24 11:19 Years Smoking Packs Smoked per Day Smoking Cessation Date was within the last 15 years Hx Smoking Cessation Date Hx Smoking Cessation Counseling Hematologic Medial History Hematologic Hx - lead systems developer: Hematologic Medical Hx - [facility]derman Hx of Blood Transfusion No 02/27/24 11:19 Hx of Transfusion in last 3 No 02/27/24 11:19 Months Date of Last Transfusion (if within last 3 months) Ever experience any problems No 02/27/24 11:19 with transfusion(s)? Specify any problems Hx of Preganancy in last 3 No 02/27/24 11:19 Months Nurse Filling Out Transfusion DSCHRIBER 02/27/24 11:19 & Questions: Date: 02/27/24 02/27/24 11:19 Time: 02/27/24 11:19 Patient unable to answer at this time (ie. confused, unrespo /Reproduction History /Reproductive History - lead systems developer: /Reproductive Hx- lead systems developer Hx Now No 02/27/24 11:19 Gestational Age (in weeks): EDC: Hx Hx Para Hx Section SAB No 02/27/24 11:19 Active Medications Active Medications: Current Medications Generic Name Dose Route Start Last Admin Trade Name Freq PRN Reason Stop Dose Admin Acetaminophen 1,000 mg 02/28/24 13:25 02/28/24 12:36 Acetaminophen 500 Mg Tablet PO 02/28/24 13:26 1,000 mg PREOP ONE Administration Ketorolac Tromethamine 30 mg 02/28/24 13:25 02/28/24 12:35 Ketorolac 30 Mg/Ml Syringe IV 02/28/24 13:26 30 mg PREOP ONE Administration PFSH Medical History Wears contact lenses Cancer Alcohol use Non-smoker History of pain when walking History of edema Bee sting Breast mass, left Home Medications ?Medication ?Instructions ?Recorded ?Last Taken ?Type multivitamin with minerals 1 ea PO DAILY 08/28/19 Unknown History Allergy/AdvReac Type Severity Reaction Status Date / Time No Known Allergies Allergy Verified 02/27/24 11:17 Family History Father Heart disease Mother Heart disease Sister Heart disease Surgical History (Updated 02/28/24 @ 13:[address] Tyson Melgar MD) History of carpal tunnel surgery of right wrist History of carpal tunnel surgery of left wrist Hx of breast surgery History of hysteroscopy History of excision of lesion Social History Smoking Status: Never smoker alcohol intake: current Review of Systems (Anesthesia) ROS Narrative System reviewed and no additional complaints, except as documented.
--- NOTE | 2024-02-28 13:20 | PCM.HP.BLA ---
History and Physical Date of Admission: 02/28/24 HPI: The patient is a 58 year old female presenting for pre-operative visit. She is scheduled for Hysteroscopy D&C with polyp resection, for AUB,fluid in endometrium on 02/28/24. Procedure discussed along with risks, benefits and complications. Other alternatives discussed for management. Consent form signed? Yes. PAST MEDICAL HISTORY PAST MEDICAL HISTORY Diagnosis Date ? Breast cancer (HCC) 07/2017 ? Endometriosis, ovary 08/15/2017 ? Fibroid uterus 07/2017 large boggy uterus, fibroid PAST SURGICAL HISTORY PAST SURGICAL HISTORY Procedure Laterality Date ? D+C 08/15/2017 D&C for AUB, large boggy uterus ? HYSTEROSCOPY REMOVAL LEIOMYOMATA 08/2919 Hysteroscopy w/ visual D&C w/ symphion and fibroid resection ? LAPAROSCOPY DIAGNOSTIC 08/15/2017 planned BSO but adhesions/endometriosis so abandoned procedure ? LEEP PROCEDURE (PAST DUE ACCOUNTS CLERK DEPT)_*FL approx 2009 ? NEUROPLASTY &/TRANSPOS MEDIAN NRV CARPAL TUNNE Bilateral 2001 ? PAST SURGICAL HISTORY OF Left 08/15/[address] CURRENT MEDICATIONS Current Outpatient Medications Medication Sig Dispense Refill ? medroxyPROGESTERone (PROVERA) 10 mg tablet Take 1 tablet by mouth once daily for 20 days. 20 tablet 0 ? ergocalciferol 50,000 unit capsule (VITAMIN D2, DRISDOL) Take 1 capsule by mouth one time a week. 12 capsule 3 ? multivit with calcium,iron,min (MULTIPLE VITAMIN, WOMENS ORAL) Take 1 tablet by mouth once daily. No current facility-administered medications for this visit. ALLERGIES: Patient has no known allergies. PERSONAL HISTORY: SOCIAL HISTORY Social History Tobacco Use ? Smoking status: Never ? Smokeless tobacco: Never Vaping Use ? Vaping status: Never Used Substance Use Topics ? Alcohol use: Yes Comment: social ? Drug use: No FAMILY HISTORY: FAMILY HISTORY FAMILY HISTORY Problem Relation Age of Onset ? Heart Mother 85 Afib ? Heart Father ? Cancer Father 74 Prostate cancer ? Heart Sister Afib ? Depression Sister ? Heart Sister Afib ? other (back issues) Brother ? other (back issues) Brother ? No Known Problems Brother ? No Known Problems Brother ? No Known Problems Brother ? No Known Problems Brother ? Heart Maternal Grandmother CHF ? Heart Maternal Grandfather [place] ? No Known Problems Paternal Grandfather REVIEW OF SYMPTOMS: GENERAL: denies fevers or chills ENDOCRINOLOGY: has not been on steroids Cardiology : denies palpitations or chest pain Respiratory: denies SOB or cough Hematology: denies history of prolonged bleeding or easy bruising or VTE Allergy: Denies history of personal or family history of allergy to anesthesia PHYSICAL EXAMINATION: VITALS: Blood pressure 132/72, pulse 70, resp. rate 16, height 158.1 cm (5' 2.25), weight 83 kg (183 lb), last menstrual period 08/04/2019, SpO2 97%. GENERAL: The patient is well nourished, well hydrated in no acute distress. , The patient is oriented to time, place, and person. NECK: Supple. No lynphadenopathy, normal thyroid, no thyromegaly. LUNGS: Clear to auscultation bilaterally. no wheezes, rhonchi or rales HEART: Regular rate and rhythm, Normal heart sounds, and No murmurs or gallops Pelvic US 11/30/23 Impression Anteverted fibroid uterus that measures 91 mm x 45 mm x 55 mm. The largest fibroids are described below. Endometrium contains a heterogeneous fluid collection and measures 3.7 mm. Normal endometrial contour. Normal appearing right ovary. Left ovary contains a subcentimeter bilocular with with single avascular septation and smooth borders. No adnexal masses were observed. There is no free fluid visualized in the peritoneal cavity. Recommendations Recommend endometrial sampling and additional evaluation as clinically indicated. O-RADS 2 ovarian lesion, non-simple cyst, almost certainly benign. No follow up imaging is needed. Menstrual History LMP on 11/28/2023. pt stopped taking Lupron 12/2022, has had two menses since 10/2023, LMP prior was 4 years ago Method Transabdominal, transvaginal, 3D ultrasound examination, Color Doppler examination. View: Adequate visualization Uterus Uterus: Visualized Uterus position: anteverted Description of uterine malformations: none Myometrium: heterogeneous Endometrium: intracavitary fluid: 'low level' echogenicity, slightly asymmetrical in thickness Cervix details: cystic lesions identified suggesting superficial Nabothian cysts Uterus length 91 mm Uterus width 55 mm Uterus height 45 mm Uterus Vol 118.8 cm? Endometrial thickness single layer 2.3 mm Endom. th. single layer 1.4 mm Side: anterior Side: posterior Endometrial thickness, total 3.7 mm Fibroids: Fibroids identified Uterine fibroid D1 19 mm Uterine fibroid D2 16 mm Uterine fibroid D3 11 mm Uterine fibroid mean 15.3 mm Uterine fibroid vol 1.751 cm? Uterine fibroids findings: Right lateral posterior wall. intramural Right Ovary Rt ovary: Visualized Rt ovary morphology: postmenopausal atrophic Rt ovary D1 30 mm Rt ovary D2 21 mm Rt ovary D3 17 mm Rt ovary Vol 5.5 cm? Left Ovary Lt ovary: Visualized Lt ovary D1 27 mm Lt ovary D2 21 mm Lt ovary D3 13 mm Lt ovary Vol 3.8 cm? Lt ovarian cyst D1 8 mm Lt ovarian cyst D2 9 mm Lt ovarian cyst D3 7 mm Lt ovarian cyst mean 8.0 mm Lt ovarian cyst vol 0.264 cm? Lt ovarian cyst findings: Bilocular cyst (single avascular septation) with smooth borders IMPRESSION: AUB PLAN: The risks/benefits/alternatives and personal involved for the planned hysteroscopy dilation and curettage and possible polyp resection were reviewed with the patient. Her questions were answered to her satisfaction and she desires to proceed. Consent was signed. I reviewed with her postop instructions and expectations. I have reviewed and updated past medical and surgical history, medications and allergies Assessment & Plan Assessment/Plan (1) Abnormal uterine bleeding (AUB):
--- NOTE | 2024-02-28 13:25 | EMB_PTH ---
PATIENT: JUNIE KIM LOC: [facility] [place] U#:[id number] AGE/SX: 58/F ROOM: RE02/28/[address]: Dr. Nettie Beasley MD : 1965 BED: DIS: 02/28/2024 SPEC #: [id number] RECD: 02/28/24 15:06 STATUS: CRUZ KAMILA #: [id number] REUBEN: 02/28/24 13:[address]: Nettie Beasley DEPT: SURGICAL PATHOLOGY RECD BY: Marly Monique ENTERED: 02/29/24 10:08 SP TYPE: ENDOM BX/C ANGELA DR: No Primary Care Phys Tissues: Endometrium, NOS Procedures: Surgery Specimen Level IV HEADER OPERATION: Hysteroscopy, D&C PRE-OP DIAGNOSIS: Abnormal uterine bleeding TISSUE SUBMITTED: Endometrial curettings MICROSCOPIC DIAGNOSIS Endometrial curettings: Strips of benign superficial glandular and squamous mucosa. AM.mr 03/03/2024 MICROSCOPIC DESCRIPTION Slides are reviewed. GROSS DESCRIPTION Received in fixative is one container labeled with the patient's name and designated Endometrial curettings. The specimen consists of multiple irregular fragments of hemorrhagic mucoid tissue that in aggregate measure 2.5 x 2.5 x 0.1 cm. The specimen is totally submitted in one cassette. 02/29/2024 TC:5 CPT:45358
--- NOTE | 2024-02-28 13:37 | PCM.DC ---
Discharge Instructions Diet Discharge Diet: No restrictions Activity Return to work on:: 02/29/24 May shower in (days): 1 May resume sexual activity in: 1 week Lifting Restrictions: none Dressing / Incision Call your doctor if your incision/area has: Sudden Increased Bleeding and Foul Smelling Discharge Call your doctor if you observe: Fever of 101 or Higher and Using more than 1 pad per hour (for 2 hrs in a row) Follow Up Care Please Follow Up With: Nettie Beasley MD When: Dr. Beasley will contact you with your pathology. You do not need a postop appointment. Call [phone] or send a [employer] message to make an appointment or with any concerns. Test Results: Test results from this visit will be discussed in further detail at your follow-up appointment, if applicable. Discharge Plan Admission Attending Provider: Nettie Beasley Primary Care Provider: Care Physician,Areli Primary Instructions Print Language: Slovenian Discharge Orders/Prescriptions Prescriptions: No Action multivitamin with minerals 1 EACH tablet 1 ea PO DAILY Referrals / Follow Up: Care Physician,No Primary [Primary Care Provider] - Disposition Disposition (needs filled in before D/C Order can be placed): Home, Self Care
[2024-02-28] MEDS: Lidocaine 1% /Epi 1:100 (20ml) 20 ML Vial (13:49)
--- NOTE | 2024-02-28 13:58 | OP.PCM_ITS ---
Problems Associated Problem List Diagnoses (1) Abnormal uterine bleeding (AUB): (2) PMB (postmenopausal bleeding): (3) Fluid in endometrial cavity: Operative Report (Standard) Operative Information Surgery/Procedure Performed: Hysteroscopy D&C Surgeon: Nettie Beasley Date of Procedure: 02/28/24 Procedure Start Time: 13:49 Procedure Stop Time: 13:53 Pre-Operative Diagnosis: PMB, fluid in endometrial cavity Post-Operative Diagnosis: same Select all DRAINS/GRAFTS/IMPLANTS that apply: None Type of Anesthesia: MAC/Supplemental/Local Special Medications: none Estimated Blood Loss: 10 Fluids Replaced: 0 Specimen collected: Yes Description of specimen(s) removed: endometrial curettings Description of surgery: The patient was taken to the OR where she was prepped and draped in dorsal lithotomy position. The weighted speculum was placed in the vagina and the anterior lip of the cervix was grasped with a single-tooth tenaculum. A paracervical block was administered with 1% lidocaine with 1-100,000 epinephrine solution. The cervix was dilated serially with Hegar dilators. The Symphion hysteroscope was placed into the uterine cavity and the above findings were noted. Bilateral tubal ostia were identified. The hysteroscope was removed. A gentle sharp curettage was done of the uterine cavity. The instruments were removed from the vagina. The specimen was handed off and sent to pathology. All sponge and needle counts were correct. Vaginal sweep was performed by me. The patient was awakened and taken to the recovery room in stable condition. Calculated hysteroscopic fluid deficit is 50 cc of normal saline Surgical Findings: atrophic endometrium without focal abnormalities, normal cervix and vagina Oxidation Operator laserist: No Complications Complications: No Admit VTE Documentation VTE Present on Admission: No VTE Mechan Device Prophylaxis: SCD's VTE Pharm Prophylaxis ordered?: No Reason prophylaxis not ordered: Treatment Not Indicated
--- NOTE | 2024-02-28 14:03 | PCM.POST.ANE ---
Anesthesia: Postop Eval I Current Vital Signs Temperature: 98.8 F Pulse Rate: 80 Blood Pressure: 116/69 Respiratory Rate: 16 Pulse Ox: 96 Oxygen Delivery Method: Room Air Assessment Airway patent: Yes Spontaneous unlabored respirations: Yes Mental status: Asleep nausea: No Vomiting: No Anesthesia Complication: No Fluid Hydration Crystalloid volume administer (ml): 10 Total IV fluid infused: 10 Progress Note Anesthesia document: Postop Eval 1 completed: Yes
--- NOTE | 2024-02-28 17:07 | POSTOPAN2_ITS ---
Anesthesia Postop Eval I Sum Postop Eval Completion status Anesthesia document: Postop Eval 1 completed: Yes Anesthesia Postop Eval I Summary Anesthesia Postop Eval I Summary: Anesthesia Postop Eval I: Assessment Summary Airway patent Yes 02/28/24 14:04 OFFAL SEPARATOR.[email or web address] Spontaneous unlabored Yes 02/28/24 14:04 OFFAL SEPARATOR.KATIE respirations Mental status Asleep 02/28/24 14:04 OFFAL SEPARATOR.KATIE nausea No 02/28/24 14:04 OFFAL SEPARATOR.KATIE Vomiting No 02/28/24 14:04 OFFAL SEPARATOR.KATIE Anesthesia Postop Eval I: Fluid Summary Crystalloid volume administer 10 02/28/24 14:04 OFFAL SEPARATOR.JULIANNEOBChristiana (ml) Colloids volume administered ( ml) Blood Product volume administered (ml) Total IV fluid infused 10 02/28/24 14:04 OFFAL SEPARATORESTELA Anesthesia Postop Eval I: Summary Notes Anesthesia Complication No 02/28/24 14:04 OFFAL SEPARATOR.KATIE Anesthesia Complication Comment: Post-operative progress note Anesthesia: Postop Eval II Evaluation Mental status: Awake and Calm Pain Level: 1 nausea: No Vomiting: No Complications Anesthesia Complication: No
--- NOTE | 2024-02-28 17:07 | PCM.POSTANE2 ---
Anesthesia Postop Eval I Sum Postop Eval Completion status Anesthesia document: Postop Eval 1 completed: Yes Anesthesia Postop Eval I Summary Anesthesia Postop Eval I Summary: Anesthesia Postop Eval I: Assessment Summary Airway patent Yes 02/28/24 14:04 MUSEUM GUIDE.JULIANNEOBChristiana Spontaneous unlabored Yes 02/28/24 14:04 MUSEUM GUIDE.KATIE respirations Mental status Asleep 02/28/24 14:04 MUSEUM GUIDE.KATIE nausea No 02/28/24 14:04 MUSEUM GUIDE.KATIE Vomiting No 02/28/24 14:04 MUSEUM GUIDE.KATIE Anesthesia Postop Eval I: Fluid Summary Crystalloid volume administer 10 02/28/24 14:04 MUSEUM GUIDE.JULIANNEOBChristiana (ml) Colloids volume administered ( ml) Blood Product volume administered (ml) Total IV fluid infused 10 02/28/24 14:04 MUSEUM GUIDEESTELA Anesthesia Postop Eval I: Summary Notes Anesthesia Complication No 02/28/24 14:04 MUSEUM GUIDE.KATIE Anesthesia Complication Comment: Post-operative progress note Anesthesia: Postop Eval II Evaluation Mental status: Awake and Calm Pain Level: 1 nausea: No Vomiting: No Complications Anesthesia Complication: No
== END 2024-02-28 15:05 | disposition home or self-care (01) ==
LOC: SDC 11:44 → AC 11:46
PROVIDERS: Referring Provider Obstetrics & Gynecology; Visit Provider Obstetrics & Gynecology
PROC: 0UB98ZZ Excision of Uterus, Via Natural or Artificial Opening Endoscopic (ICD-10-PCS; CPT 58558; principal; 2024-02-28 13:15)
DX: N93.9 Abnormal uterine and vaginal bleeding, unspecified (principal); N95.0 Postmenopausal bleeding
CPT/HCPCS: 58558; 00952; 80048; 85027; 88305; A4216; J2405

== ENCOUNTER → 2024-03-04 | Outpatient (CLI) | payer OTHER, SELFPAY ==
--- NOTE | 2024-03-04 09:49 | BI_ITS ---
MAMMOGRAPHY - BILATERAL SCREENING 3-D TOMOSYNTHESIS REASON FOR EXAM: Female, 58 years old. SCREENING PERTINENT HISTORY: No significant family history. TECHNIQUE: 2-D mammograms and 3-D Tomosynthesis of the breast (s) were performed. CAD was performed. COMPARISON: 10/03/2022 FINDINGS: The breast composition is composed of scattered fibroglandular density. Scattered benign calcifications are seen. No dense spiculated masses or suspicious microcalcifications are identified. No architectural distortion is identified. There is no skin thickening or retraction. There has been no significant change since the prior study. No change in lumpectomy changes and scarring with architectural distortion in the upper outer quadrant left breast. BI/SCRN MAMM (CAD)W/ELIDIA BILAT IMPRESSION: No mammographic signs of malignancy. Routine yearly mammograms recommended. ASSESSMENT CATEGORY: BIRADS Category 2: Benign. A letter regarding these results will be sent to the patient by the facility within 30 days. FOLLOW UP RECOMMENDATION: Yearly follow up mammogram recommended. (A) Approximately 10% of breast cancers are not detected by mammography. A normal mammogram should not delay biopsy of a clinically suspicious abnormality. Electronically Signed: Wilber Zuñiga MD at 15:46 EST ,
== END | disposition home or self-care (01) ==
LOC: OPBI 09:47
PROVIDERS: Referring Provider Internal Medicine Hematology & Oncology; Visit Provider Internal Medicine Hematology & Oncology
DX: Z12.31 Encounter for screening mammogram for malignant neoplasm of breast (principal)
CPT/HCPCS: 77063; 77067

== ENCOUNTER → 2024-03-27 | Outpatient (CLI) | payer OTHER, SELFPAY ==
--- NOTE | 2024-03-27 10:48 | US_ITS ---
STUDY: ULTRASOUND BREAST - LEFT REASON FOR EXAM: Female, 58 years old. Abnormal screening mammogram. TECHNIQUE: Axial and longitudinal images of the LEFT breast were performed with a high resolution ultrasound transducer. # OF IMAGES: 35 COMPARISON: Comparison is made with prior mammogram dated March 04, 2024. FINDINGS: LEFT Breast: The upper outer quadrant of the left breast was examined with ultrasound. This is the area of prior lumpectomy and scarring. There is a 7 mm x 8 mm x 8 mm irregular hypoechoic density at the surgical site most likely representing postbiopsy scarring. US/Breast Limited Unilateral IMPRESSION: Findings suggestive of postbiopsy scarring at the 2:00 position of the breast at 8 cm from the nipple. ASSESSMENT CATEGORY: BIRADS Category 2: Benign. A letter regarding these results will be sent to the patient by the facility within 30 days. Electronically Signed: Niels Jain MD at 13:10 EST ,
== END | disposition home or self-care (01) ==
PROVIDERS: Referring Provider Internal Medicine Hematology & Oncology; Visit Provider Internal Medicine Hematology & Oncology
DX: C50.412 Malignant neoplasm of upper-outer quadrant of left female breast (principal); Z17.0 Estrogen receptor positive status [ER+]
CPT/HCPCS: 76642